=== PATIENT | female | born 1925 | race Caucasian/White ===

== ENCOUNTER 2016-07-02 11:12 | Outpatient (CLI) | payer MEDICARE, BC | END 2016-07-02 11:13 | disposition home or self-care (01) | DX: M16.12 Unilateral primary osteoarthritis, left hip (principal) ==

== ENCOUNTER 2016-07-04 08:19 | Inpatient (IN) | payer MEDICARE, BC ==
[2016-07-04] MEDS ORDERED: ceFAZolin 2 GM/50 ML 50 ML IV ONE (08:45)
[2016-07-04] MEDS ORDERED: LACTATED RINGERS 1,000 ML IV ONE ×2 (09:08→13:30)
[2016-07-04] MEDS ORDERED: PROPOFOL 200 MG/20 ML VIAL IVP ONE (12:45)
[2016-07-04] MEDS ORDERED: MIDAZOLAM 2 MG/2 ML VIAL IVP ONE (12:45)
[2016-07-04] MEDS ORDERED: MORPHINE PF 5 MG/10 ML AMP EP ONE (12:45)
[2016-07-04] MEDS ORDERED: TRANEXAMIC ACID 1,000 MG/10 ML VIAL IV ONE (12:45)
[2016-07-04] MEDS ORDERED: fentaNYL 100 MCG/2 ML VIAL IVP ONE (12:45)
[2016-07-04] MEDS ORDERED: LIDOCAINE-PF 2% 10 ML AMP SUBQ ONE (12:45)
[2016-07-04] MEDS ORDERED: ROPIVACAINE 0.5% PF 20 ML AMPULE SUBQ ONE ×2 (13:36→15:32)
[2016-07-04] MEDS ORDERED: MORPHINE PF 5 MG/10 ML AMP SUBQ ONE ×2 (13:37→15:32)
[2016-07-04] MEDS ORDERED: KETOROLAC 15 MG/ML VIAL IVP ONE ×2 (13:37→15:32)
[2016-07-04] MEDS ORDERED: EPINEPHrine 1 MG/ML AMP IVP ONE ×2 (13:37→15:32)
[2016-07-04] MEDS ORDERED: HYDROmorphone 1 MG/ML SYRINGE IVP PRN (16:13)
[2016-07-04] MEDS ORDERED: ONDANSETRON 4 MG/2 ML VIAL IVP PRN (16:13)
[2016-07-04] MEDS ORDERED: BISACODYL 5 MG TABLET PO PRN (16:13)
[2016-07-04] MEDS ORDERED: SENNA 8.6 MG TABLET PO PRN (16:13)
[2016-07-04] MEDS ORDERED: ACETAMINOPHEN 1,000 MG/100 ML 100 ML IV PRN (16:13)
[2016-07-04] MEDS ORDERED: PROCHLORPERAZINE 10 MG/2 ML VIAL IVP PRN (16:13)
[2016-07-04] MEDS ORDERED: BISACODYL 10 MG SUPP PR PRN (16:13)
[2016-07-04] MEDS ORDERED: ACETAMINOPHEN 325 MG TABLET PO PRN (16:13)
[2016-07-04] MEDS ORDERED: SODIUM CHLORIDE FLUSH 0.9% 10 ML SYRINGE IVP PRN (16:13)
[2016-07-04] MEDS ORDERED: traMADol 50 MG TABLET PO PRN (16:18)
[2016-07-04] MEDS: HYDROcod/ACETAM 5/325 MG TABLET PO PRN (18:43)
[2016-07-04] MEDS ORDERED: DEXTROSE GEL 37.5 GM TUBE PO PRN (18:46)
[2016-07-04] MEDS ORDERED: GLUCAGON 1 MG/ML VIAL SUBQ PRN (18:46)
[2016-07-04] MEDS ORDERED: DEXTROSE 5% 1,000 ML IV PRN (18:46)
[2016-07-04] MEDS ORDERED: DEXTROSE 50% ABBOJECT 25 GM/50 ML SYRINGE IVP PRN (18:46)
[2016-07-04] MEDS ORDERED: DEXTROSE 5%-0.45% NACL 1,000 ML IV ONE (19:00)
[2016-07-04] MEDS: ceFAZolin 2 GM/50 ML 50 ML IV SCH (20:38)
[2016-07-04] MEDS: METOPROLOL SUCCINATE 50 MG TABLET PO SCH (20:38)
[2016-07-04] MEDS: cloNIDine 0.1 MG TABLET PO SCH (20:40)
[2016-07-04] MEDS: ATORVASTATIN 10 MG TABLET PO SCH (20:40)
[2016-07-04] MEDS: INSULIN ASPART 300 UNIT/3 ML PEN SUBQ SCH (20:52)
[2016-07-04] MEDS: SODIUM CHLORIDE FLUSH 0.9% 10 ML SYRINGE IVP SCH (20:56)
[2016-07-05] MEDS ORDERED: MAGNESIUM SULFATE 5 GM/10 ML VIAL IV STA
[2016-07-05] MEDS: MAGNESIUM SULFATE 2 GRAM 50 ML IV SCH ×2 (00:33→03:04)
[2016-07-05] MEDS ORDERED: LACTATED RINGERS 1,000 ML IV SCH (01:00)
[2016-07-05] MEDS: HYDROcod/ACETAM 5/325 MG TABLET PO PRN ×4 (01:10→20:16)
[2016-07-05] MEDS: DOCUSATE SODIUM 100 MG CAPSULE PO PRN ×3 (01:30→20:18)
[2016-07-05] MEDS: ceFAZolin 2 GM/50 ML 50 ML IV SCH (05:00)
[2016-07-05] MEDS: SODIUM CHLORIDE FLUSH 0.9% 10 ML SYRINGE IVP SCH ×2 (05:09→14:51)
[2016-07-05] MEDS: INSULIN ASPART 300 UNIT/3 ML PEN SUBQ SCH ×4 (07:57→20:26)
[2016-07-05] MEDS ORDERED: DEXTROSE 5%-0.9% NACL 1,000 ML IV SCH (09:00)
[2016-07-05] MEDS ORDERED: cefTRIAXone 1 GM in SODIUM CHLORIDE 0.9% MINIBAG 100 ML IV SCH ×3 (09:00)
[2016-07-05] MEDS: LOSARTAN 50 MG TABLET PO SCH (09:33)
[2016-07-05] MEDS: CALCIUM CARBONATE CHEW 500 MG TABLET PO SCH ×2 (09:33→20:16)
[2016-07-05] MEDS: METOPROLOL SUCCINATE 50 MG TABLET PO SCH ×2 (09:34→20:24)
[2016-07-05] MEDS: SPIRONOLACTONE 25 MG TABLET PO SCH (09:34)
[2016-07-05] MEDS: cloNIDine 0.1 MG TABLET PO SCH ×2 (09:34→20:17)
[2016-07-05] MEDS: ANASTROZOLE 1 MG TABLET PO SCH (09:34)
[2016-07-05] MEDS: CHOLECALCIFEROL 400 UNIT TABLET PO SCH ×2 (09:34→20:18)
[2016-07-05] MEDS: ASCORBIC ACID CHEW 500 MG TABLET PO SCH (09:34)
[2016-07-05] MEDS: ENOXAPARIN 30 MG/0.3 ML SYRINGE SUBQ SCH (09:35)
[2016-07-05] MEDS: INSULIN GLARGINE 300 UNIT/3 ML PEN SUBQ SCH (09:47)
[2016-07-05] MEDS: ATORVASTATIN 10 MG TABLET PO SCH (20:17)
[2016-07-06] MEDS: HYDROcod/ACETAM 5/325 MG TABLET PO PRN ×3 (00:29→12:44)
[2016-07-06] MEDS: SODIUM CHLORIDE FLUSH 0.9% 10 ML SYRINGE IVP SCH ×4 (00:31→22:19)
[2016-07-06] MEDS: INSULIN ASPART 300 UNIT/3 ML PEN SUBQ SCH ×4 (07:51→22:18)
[2016-07-06] MEDS ORDERED: cefTRIAXone 1 GM in SODIUM CHLORIDE 0.9% MINIBAG 100 ML IV SCH (09:00)
[2016-07-06] MEDS: ENOXAPARIN 30 MG/0.3 ML SYRINGE SUBQ SCH (09:10)
[2016-07-06] MEDS: INSULIN GLARGINE 300 UNIT/3 ML PEN SUBQ SCH (09:10)
[2016-07-06] MEDS: CALCIUM CARBONATE CHEW 500 MG TABLET PO SCH ×2 (09:11→21:07)
[2016-07-06] MEDS: ASCORBIC ACID CHEW 500 MG TABLET PO SCH (09:11)
[2016-07-06] MEDS: CHOLECALCIFEROL 400 UNIT TABLET PO SCH ×2 (09:12→21:07)
[2016-07-06] MEDS: METOPROLOL SUCCINATE 50 MG TABLET PO SCH ×2 (09:12→21:08)
[2016-07-06] MEDS: ANASTROZOLE 1 MG TABLET PO SCH (09:12)
[2016-07-06] MEDS: SULFAMETH/TRIMETH DS 800/160 MG TABLET PO SCH ×2 (09:13→21:07)
[2016-07-06] MEDS: SPIRONOLACTONE 25 MG TABLET PO SCH (09:13)
[2016-07-06] MEDS: DOCUSATE SODIUM 100 MG CAPSULE PO PRN (09:13)
[2016-07-06] MEDS: LOSARTAN 50 MG TABLET PO SCH (09:13)
[2016-07-06] MEDS: cloNIDine 0.1 MG TABLET PO SCH ×2 (09:13→21:08)
[2016-07-06] MEDS: ATORVASTATIN 10 MG TABLET PO SCH (21:07)
[2016-07-07] MEDS: SODIUM CHLORIDE FLUSH 0.9% 10 ML SYRINGE IVP SCH ×3 (02:13→21:07)
[2016-07-07] MEDS: INSULIN ASPART 300 UNIT/3 ML PEN SUBQ SCH ×4 (08:09→21:07)
[2016-07-07] MEDS: ONDANSETRON ODT 4 MG TABLET TL PRN (08:32)
[2016-07-07] MEDS: ANASTROZOLE 1 MG TABLET PO SCH (09:30)
[2016-07-07] MEDS: CHOLECALCIFEROL 400 UNIT TABLET PO SCH ×2 (09:30→21:02)
[2016-07-07] MEDS: METOPROLOL SUCCINATE 50 MG TABLET PO SCH ×2 (09:30→21:02)
[2016-07-07] MEDS: SULFAMETH/TRIMETH DS 800/160 MG TABLET PO SCH ×2 (09:30→21:03)
[2016-07-07] MEDS: cloNIDine 0.1 MG TABLET PO SCH ×2 (09:31→21:03)
[2016-07-07] MEDS: LOSARTAN 50 MG TABLET PO SCH (09:31)
[2016-07-07] MEDS: ASCORBIC ACID CHEW 500 MG TABLET PO SCH (09:31)
[2016-07-07] MEDS: ENOXAPARIN 30 MG/0.3 ML SYRINGE SUBQ SCH (09:31)
[2016-07-07] MEDS: SPIRONOLACTONE 25 MG TABLET PO SCH (09:31)
[2016-07-07] MEDS: CALCIUM CARBONATE CHEW 500 MG TABLET PO SCH ×2 (09:31→21:03)
[2016-07-07] MEDS: INSULIN GLARGINE 300 UNIT/3 ML PEN SUBQ SCH (10:45)
[2016-07-07] MEDS: HYDROcod/ACETAM 5/325 MG TABLET PO PRN (16:56)
[2016-07-07] MEDS: ATORVASTATIN 10 MG TABLET PO SCH (21:02)
[2016-07-08] MEDS: SODIUM CHLORIDE FLUSH 0.9% 10 ML SYRINGE IVP SCH ×2 (07:00→11:56)
[2016-07-08] MEDS: ONDANSETRON ODT 4 MG TABLET TL PRN (08:13)
[2016-07-08] MEDS: INSULIN ASPART 300 UNIT/3 ML PEN SUBQ SCH ×3 (08:28→19:48)
[2016-07-08] MEDS: ENOXAPARIN 30 MG/0.3 ML SYRINGE SUBQ SCH (08:29)
[2016-07-08] MEDS: INSULIN GLARGINE 300 UNIT/3 ML PEN SUBQ SCH (08:29)
[2016-07-08] MEDS: CALCIUM CARBONATE CHEW 500 MG TABLET PO SCH (08:30)
[2016-07-08] MEDS: HYDROcod/ACETAM 5/325 MG TABLET PO PRN (08:30)
[2016-07-08] MEDS: ASCORBIC ACID CHEW 500 MG TABLET PO SCH (08:30)
[2016-07-08] MEDS: ANASTROZOLE 1 MG TABLET PO SCH (08:31)
[2016-07-08] MEDS: SULFAMETH/TRIMETH DS 800/160 MG TABLET PO SCH (08:31)
[2016-07-08] MEDS: CHOLECALCIFEROL 400 UNIT TABLET PO SCH (08:31)
[2016-07-08] MEDS: LOSARTAN 50 MG TABLET PO SCH (08:31)
[2016-07-08] MEDS: METOPROLOL SUCCINATE 50 MG TABLET PO SCH (08:31)
[2016-07-08] MEDS: SPIRONOLACTONE 25 MG TABLET PO SCH (08:31)
[2016-07-08] MEDS: cloNIDine 0.1 MG TABLET PO SCH (08:31)
== END 2016-07-08 17:36 | DRG 470 ==
PROC: 0SRB02A Replacement of Left Hip Joint with Metal on Polyethylene Synthetic Substitute, Uncemented, Open Approach (ICD-10-PCS; principal; 2016-07-04 09:45)
DX: M16.12 Unilateral primary osteoarthritis, left hip (principal); N39.0 Urinary tract infection, site not specified; E87.1 Hypo-osmolality and hyponatremia; D50.0 Iron deficiency anemia secondary to blood loss (chronic); Z96.642 Presence of left artificial hip joint; E11.649 Type 2 diabetes mellitus with hypoglycemia without coma; E78.5 Hyperlipidemia, unspecified; I10 Essential (primary) hypertension; S74.12XA Injury of femoral nerve at hip and thigh level, left leg, initial encounter; X58.XXXA Exposure to other specified factors, initial encounter; Y83.8 Other surgical procedures as the cause of abnormal reaction of the patient, or of later complication, without mention of misadventure at the time of the procedure; Y92.234 Operating room of hospital as the place of occurrence of the external cause; C50.912 Malignant neoplasm of unspecified site of left female breast; C50.911 Malignant neoplasm of unspecified site of right female breast; E66.9 Obesity, unspecified; Z68.30 Body mass index [BMI] 30.0-30.9, adult; Z79.4 Long term (current) use of insulin; Z90.13 Acquired absence of bilateral breasts and nipples; Z79.811 Long term (current) use of aromatase inhibitors

== ENCOUNTER 2016-07-09 08:00 | Outpatient (CLI) | payer BC, MEDICARE, OTHER | END 2016-07-09 08:01 | disposition home or self-care (01) | DX: N39.0 Urinary tract infection, site not specified (principal) ==

== ENCOUNTER 2016-07-11 10:02 | Outpatient (CLI) | payer BC, MEDICARE, OTHER | END 2016-07-11 10:03 | disposition home or self-care (01) | DX: I10 Essential (primary) hypertension (principal); N18.9 Chronic kidney disease, unspecified; D64.9 Anemia, unspecified ==

== ENCOUNTER 2016-07-15 10:30 | Outpatient (CLI) | payer BC, MEDICARE, OTHER | END 2016-07-15 23:59 | DX: I10 Essential (primary) hypertension (principal) ==

== ENCOUNTER 2016-07-18 12:39 | Outpatient (CLI) | payer BC, MEDICARE, OTHER | END 2016-07-18 12:40 | disposition home or self-care (01) | DX: E11.9 Type 2 diabetes mellitus without complications (principal) ==

== ENCOUNTER 2016-07-26 12:22 | Outpatient (CLI) | payer MEDICARE, BC | END 2016-07-26 12:23 | disposition home or self-care (01) | DX: I10 Essential (primary) hypertension (principal) ==

== ENCOUNTER 2016-08-03 12:08 | Outpatient (CLI) | payer BC, MEDICARE, OTHER | END 2016-08-03 12:09 | disposition home or self-care (01) | DX: Z47.1 Aftercare following joint replacement surgery (principal); Z96.642 Presence of left artificial hip joint ==

== ENCOUNTER 2016-08-04 06:44 | Outpatient (CLI) | payer BC, MEDICARE, OTHER | END 2016-08-04 06:45 | disposition home or self-care (01) | DX: E87.1 Hypo-osmolality and hyponatremia (principal) ==

== ENCOUNTER 2016-11-18 08:42 | Outpatient (CLI) | payer MEDICARE, BC ==
[2016-11-18 10:01] LABS: ALBUMIN/GLOBULIN RATIO 1.1 (1.0-2.2); BILIRUBIN,TOTAL 0.4 mg/dL (0.2-1.0); BUN - BLOOD UREA NITROGEN 19 mg/dL (6-20); CALCIUM 9.7 mg/dL (8.5-10.3); CARBON DIOXIDE - CO2 27 mmol/L (21-32); CHLORIDE 100 mmol/L (101-111); CHOL/HDL RATIO 3.1 (<4.4); CHOLESTEROL 148 mg/dL; CREATININE 0.8 mg/dL (0.4-1.0); GFR - MDRD 68 (>89); GLUCOSE 186 mg/dL (70-100); HDL CHOLESTEROL 48 mg/dL; LDL/HDL RATIO 1.6 (<4.4); POTASSIUM 4.1 mmol/L (3.5-5.0); SODIUM 138 mmol/L (135-145); TOTAL PROTEIN 7.6 g/dL (6.7-8.2); TRIGLYCERIDES 122 mg/dL; VLDL CHOLESTEROL 24 mg/dL
[2016-11-18 10:24] LABS: HEMOGLOBIN A1C 1.12 g/dL
== END 2016-11-18 08:43 | disposition home or self-care (01) ==
LOC: LAB 08:42
PROVIDERS: ATTEND Family Medicine
DX: E78.5 Hyperlipidemia, unspecified (principal); I10 Essential (primary) hypertension; E11.9 Type 2 diabetes mellitus without complications
CPT/HCPCS: 36415; 80053; 80061; 83036

== ENCOUNTER 2017-01-25 07:27 | Outpatient (CLI) | payer MEDICARE, BC ==
[2017-01-25 08:05] LABS: BASOPHILS # (AUTO) 0.1 10^3/uL (0.0-0.1); BASOPHILS % (AUTO) 1.2 %; EOSINOPHILS # (AUTO) 0.4 10^3/uL (0.0-0.7); EOSINOPHILS % (AUTO) 5.4 %; HCT - HEMATOCRIT 35.8 % (37.0-47.0); LYMPHOCYTES # (AUTO) 2.1 10^3/uL (1.5-3.5); LYMPHOCYTES % (AUTO) 26.6 %; MEAN CORPUSCULAR HEMOGLOBIN 30.2 pg (27.0-31.0); MEAN CORPUSCULAR HGB CONC 33.6 g/dL (32.0-36.0); MEAN CORPUSCULAR VOLUME 89.6 fL (81.0-99.0); MEAN PLATELET VOLUME 9.2 fL (7.9-10.8); MONOCYTES # (AUTO) 0.7 10^3/uL (0.0-1.0); MONOCYTES % (AUTO) 8.9 %; NEUTROPHILS # (AUTO) 4.6 10^3/uL (1.5-6.6); NEUTROPHILS % (AUTO) 57.9 %; NUCLEATED RED BLOOD CELLS AUTO 0.1 /100WBC; RED BLOOD COUNT 3.99 10^6/uL (4.20-5.40); RED CELL DISTRIBUTION WIDTH 15.8 % (12.0-15.0); UNCORRECTED WHITE BLOOD COUNT 7.9 x10^3/uL; WHITE BLOOD COUNT 7.9 x10^3/uL (4.8-10.8)
[2017-01-25 08:42] LABS: BILIRUBIN,TOTAL 0.6 mg/dL (0.2-1.0); BUN - BLOOD UREA NITROGEN 23 mg/dL (6-20); CALCIUM 9.4 mg/dL (8.5-10.3); CARBON DIOXIDE - CO2 28 mmol/L (21-32); CHLORIDE 102 mmol/L (101-111); CHOLESTEROL 143 mg/dL; CREATININE 0.8 mg/dL (0.4-1.0); GFR - MDRD 68 (>89); GLUCOSE 164 mg/dL (70-100); HDL CHOLESTEROL 48 mg/dL; LDL/HDL RATIO 1.5 (<4.4); POTASSIUM 4.1 mmol/L (3.5-5.0); SODIUM 137 mmol/L (135-145); TOTAL PROTEIN 7.3 g/dL (6.7-8.2); TRIGLYCERIDES 125 mg/dL; VLDL CHOLESTEROL 25 mg/dL
[2017-01-25 08:51] LABS: HEMOGLOBIN A1C 0.88 g/dL
== END 2017-01-25 07:28 | disposition home or self-care (01) ==
LOC: LAB 07:27
PROVIDERS: ATTEND Family Medicine
DX: E78.5 Hyperlipidemia, unspecified (principal); E11.9 Type 2 diabetes mellitus without complications; I10 Essential (primary) hypertension; C50.912 Malignant neoplasm of unspecified site of left female breast
CPT/HCPCS: 36415; 80053; 80061; 83036; 85025

== ENCOUNTER 2017-04-26 08:21 | Outpatient (CLI) | payer MEDICARE, BC ==
[2017-04-26 09:28] LABS: BASOPHILS # (AUTO) 0.1 10^3/uL (0.0-0.1); BASOPHILS % (AUTO) 0.8 %; EOSINOPHILS # (AUTO) 0.3 10^3/uL (0.0-0.7); EOSINOPHILS % (AUTO) 3.8 %; HCT - HEMATOCRIT 37.9 % (37.0-47.0); HGB - HEMOGLOBIN 12.8 g/dL (12.0-16.0); LYMPHOCYTES # (AUTO) 2.3 10^3/uL (1.5-3.5); LYMPHOCYTES % (AUTO) 27.1 %; MEAN CORPUSCULAR HEMOGLOBIN 30.8 pg (27.0-31.0); MEAN CORPUSCULAR HGB CONC 33.8 g/dL (32.0-36.0); MEAN CORPUSCULAR VOLUME 91.1 fL (81.0-99.0); MEAN PLATELET VOLUME 9.1 fL (7.9-10.8); MONOCYTES # (AUTO) 0.6 10^3/uL (0.0-1.0); MONOCYTES % (AUTO) 7.6 %; NEUTROPHILS % (AUTO) 60.7 %; NUCLEATED RED BLOOD CELLS AUTO 0.1 /100WBC; RED BLOOD COUNT 4.16 10^6/uL (4.20-5.40); RED CELL DISTRIBUTION WIDTH 13.9 % (12.0-15.0); UNCORRECTED WHITE BLOOD COUNT 8.3 x10^3/uL; WHITE BLOOD COUNT 8.3 x10^3/uL (4.8-10.8)
[2017-04-26 09:51] LABS: BILIRUBIN,TOTAL 0.5 mg/dL (0.2-1.0); BUN - BLOOD UREA NITROGEN 20 mg/dL (6-20); CALCIUM 9.5 mg/dL (8.5-10.3); CARBON DIOXIDE - CO2 26 mmol/L (21-32); CHLORIDE 101 mmol/L (101-111); CHOL/HDL RATIO 2.8 (<4.4); CHOLESTEROL 136 mg/dL; CREATININE 0.8 mg/dL (0.4-1.0); GFR - MDRD 68 (>89); GLUCOSE 164 mg/dL (70-100); HDL CHOLESTEROL 48 mg/dL; HEMOGLOBIN A1C 0.9 g/dL; LDL/HDL RATIO 1.3 (<4.4); POTASSIUM 3.9 mmol/L (3.5-5.0); SODIUM 138 mmol/L (135-145); TOTAL PROTEIN 7.3 g/dL (6.7-8.2); TRIGLYCERIDES 124 mg/dL; VLDL CHOLESTEROL 25 mg/dL
== END 2017-04-26 08:22 | disposition home or self-care (01) ==
LOC: LAB 08:21
PROVIDERS: ATTEND Family Medicine
DX: E78.5 Hyperlipidemia, unspecified (principal); E11.9 Type 2 diabetes mellitus without complications; I10 Essential (primary) hypertension; C50.912 Malignant neoplasm of unspecified site of left female breast
CPT/HCPCS: 36415; 80053; 80061; 83036; 85025